=== PATIENT | female | born 1980 | race Caucasian/White ===

== ENCOUNTER 2016-06-22 02:22 | Emergency (ER) | payer MEDICARE, OTHER ==
[~2016-06-22] VITALS: Ht 157.5 cm; Wt 81.2 kg
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
--- NOTE | 2016-06-22 02:59 | NUR ---
er md at bedside for scalp laceration repair.
[2016-06-22] MEDS ORDERED: TDAP [DIPH/PERTUSSIS/TET] 0.5 ML VIAL IM ONE ×2 (03:00→03:20)
--- NOTE | 2016-06-22 03:28 | NUR ---
Patient discharged to home in stable condition. Written and verbal after care instructions given. Patient verbalizes understanding of instruction. ambulatory with a steady gait noted. pt aaox4 no acute distress noted, resp even and unlabored. pt family members at bedside to take pt home.
[2016-06-22 03:32] VITALS: BP 127/63
== END 2016-06-22 03:33 | disposition home or self-care (01) ==
LOC: ER 02:24
DX: S09.90XA Unspecified injury of head, initial encounter (principal); S01.01XA Laceration without foreign body of scalp, initial encounter; Z88.5 Allergy status to narcotic agent; Z93.0 Tracheostomy status; W18.39XA Other fall on same level, initial encounter; Y93.89 Activity, other specified; Y92.89 Other specified places as the place of occurrence of the external cause; Y99.9 Unspecified external cause status
CPT/HCPCS: 70450-TC; 90715; A6403

== ENCOUNTER 2016-12-11 15:22 | Emergency (ER) | payer MEDICARE, OTHER ==
[~2016-12-11] VITALS: Ht 157.5 cm; Wt 80.7 kg
[2016-12-11 15:30] VITALS: BP 172/78
[2016-12-11] MEDS ORDERED: TETRACAINE HCL/PF 0.5% UD 2 ML BOTTLE ONE (15:51)
[2016-12-11] MEDS ORDERED: FLUORESCEIN SODIUM OPHTH 1 EA STRIP ONE (15:51)
[2016-12-11] MEDS ORDERED: FLUORESCEIN SODIUM OPHTH 1 EA STRIP OP ONE (16:00)
[2016-12-11] MEDS ORDERED: PROPARACAINE HCL OPHTH 15 ML BOTTLE OP ONE (16:00)
== END 2016-12-11 16:29 | disposition home or self-care (01) ==
LOC: ER 16:20
DX: H10.9 Unspecified conjunctivitis (principal); Z87.820 Personal history of traumatic brain injury; Z93.1 Gastrostomy status; Z93.0 Tracheostomy status; Z88.5 Allergy status to narcotic agent
CPT/HCPCS: A4606; Z7610

== ENCOUNTER 2017-11-20 15:03 | Emergency (ER) | payer MEDICARE, OTHER ==
[~2017-11-20] VITALS: Ht 160 cm; Wt 78.0 kg
[2017-11-20] MEDS ORDERED: IV NS 0.9% 1,000 ML BAG IV ONE (16:00)
[2017-11-20] MEDS ORDERED: MORPHINE SULFATE INJ 2 MG/ML DISP.SYRIN IV ONE (16:00)
[2017-11-20] MEDS ORDERED: ONDANSETRON HCL/PF 4 MG/2 ML VIAL IVP ONE (16:00)
[2017-11-20] MEDS ORDERED: ONDANSETRON HCL/PF 4 MG/2 ML VIAL ONE (16:01)
[2017-11-20] MEDS ORDERED: MORPHINE SULFATE INJ 4 MG/ML DISP.SYRIN ONE (16:01)
--- NOTE | 2017-11-20 16:24 | NUR ---
DIARRHEA/LOW ABDOMIANL PAIN AND LOW BACK PAIN SINCE YESTERDAY. PT AAOX3, VSS. DENIES CP, SOB, N/V @ THIS TIME. PT SEEN & EVAL'D BY SOTO NP. MOM @ BS & WILL CONT TO MONITOR.
[2017-11-20 16:31] LABS: EOSINOPHILS % (AUTO) 0.1 % (0.0-6.0); HEMATOCRIT 38 % (33-45); HEMOGLOBIN 11.8 g/dL (11.5-14.8); LYMPHOCYTES # (AUTO) 1.5 /CMM (0.8-4.8); LYMPHOCYTES % (AUTO) 10.7 % (20.0-44.0); MEAN CORPUSCULAR HGB CONC 31 g/dl (31.0-36.0); MEAN CORPUSCULAR VOLUME 66 fL (82-100); MONOCYTES % (AUTO) 7.1 % (2.0-12.0); NEUTROPHILS # (AUTO) 11.4 /CMM (1.8-8.9); NEUTROPHILS % (AUTO) 82.1 % (43.0-81.0); PLATELET COUNT (AUTO) 202 /CMM (150-450); RDW COEFFICIENT OF VARIATION 16.4 (11.5-15.0); RED BLOOD CELL COUNT(AUTO) 5.74 MIL/uL (4.0-5.2); WHITE BLOOD COUNT (AUTO) 13.9 K/uL (4.3-11.0)
[2017-11-20 16:33] LABS: CALCIUM, SERUM 8.6 mg/dL (8.5-10.1); CREATININE 0.7 mg/dL (0.6-1.3); POTASSIUM 3.6 mmol/L (3.5-5.1)
[2017-11-20 16:39] LABS: BILIRUBIN,DIRECT 0.1 mg/dL (0.0-0.2); BILIRUBIN,TOTAL 0.6 mg/dL (0.2-1.0); TOTAL PROTEIN, SERUM 7.8 g/dL (6.4-8.2)
[2017-11-20] MEDS ORDERED: IOHEXOL-300 100 ML VIAL IV ONE (16:45)
[2017-11-20] MEDS ORDERED: CT SWABBABLE VALVE TRANS SET 1 EA INFUS.SET MC ONE (16:45)
[2017-11-20] MEDS ORDERED: IV NS 0.9% 250 ML IV ONE (16:45)
[2017-11-20 17:30] LABS: APPEARANCE,URINE Clear (CLEAR); BILIRUBIN,URINE Negative (NEGATIVE); BLOOD, URINE Negative Ery/uL (NEGATIVE); COLOR,URINE Yellow (YELLOW); KETONES,URINE 15 (NEGATIVE); LEUKOCYTE ESTERASE ,URINE Small (NEGATIVE); NITRITE, URINE Negative (NEGATIVE); PROTEIN,URINE Negative (NEGATIVE); UGLUCOSE Negative (NEGATIVE); UROBILINOGEN,URINE 0.2 EU/dL (0.2)
[2017-11-20 17:38] LABS: BACTERIA,URINE Many /HPF (None Seen); SQUAMOUS EPITHELIAL CELL,UR Moderate /HPF (None Seen)
[2017-11-20 17:39] LABS: RBC,URINE 0-2 /HPF (0-2)
[2017-11-20 18:05] LABS: BAND % (MANUAL) 3 % (0.0-5.0); LYMPHOCYTES % (MANUAL) 18 % (16-48); MONOCYTES % (MANUAL) 3 % (0-11.0); NEUTROPHILS % (MANUAL) 76 (42-76)
--- NOTE | 2017-11-20 19:32 | NUR ---
Patient discharged to home in stable condition. Written and verbal after care instructions given. Patient verbalizes understanding of instruction.
[2017-11-20 19:33] VITALS: BP 124/74
== END 2017-11-20 19:34 | disposition home or self-care (01) ==
LOC: ER 15:06
DX: K52.9 Noninfective gastroenteritis and colitis, unspecified (principal); Z93.1 Gastrostomy status; Z93.0 Tracheostomy status; Z88.5 Allergy status to narcotic agent
CPT/HCPCS: 36415; 74177; 80048; 80076; 81001; 83690; 84703; 85025; 87015; 87045; 87086; 87427 ×3; 89055; 96361; 96374; 96375; 99285; A4606; J2270; J2405; J7030; J7050; Q9967; 81000-TC; Z7610

== ENCOUNTER 2023-04-25 17:06 | Emergency (ER) | payer MEDICARE, OTHER ==
[~2023-04-25] VITALS: Ht 160 cm; Wt 78.0 kg
[2023-04-25 17:18] VITALS: BP 134/72; TEMP 98.7
[2023-04-25 17:30] VITALS: O2SAT 100
== END 2023-04-25 18:16 | disposition home or self-care (01) ==
LOC: ER 17:14
DX: J34.89 Other specified disorders of nose and nasal sinuses (principal); Z88.5 Allergy status to narcotic agent; Z88.8 Allergy status to other drugs, medicaments and biological substances